=== PATIENT | male | born 1985 | race Caucasian/White ===

== ENCOUNTER 2018-04-19 15:37 | Emergency (ER) | payer MEDICARE, MEDICAID ==
[2018-04-19 15:59] VITALS: BP 137/76
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
== END 2018-04-19 17:14 | disposition home or self-care (01) ==
LOC: UCEAST 15:37
DX: S06.0X9A Concussion with loss of consciousness of unspecified duration, initial encounter (principal); S16.1XXA Strain of muscle, fascia and tendon at neck level, initial encounter; V43.63XA Car passenger injured in collision with pick-up truck in traffic accident, initial encounter; Y93.89 Activity, other specified; Y92.410 Unspecified street and highway as the place of occurrence of the external cause; F20.9 Schizophrenia, unspecified; K29.70 Gastritis, unspecified, without bleeding; K22.70 Barrett's esophagus without dysplasia; Z87.891 Personal history of nicotine dependence
CPT/HCPCS: 99212; G0463

== ENCOUNTER 2019-03-24 18:40 | Emergency (ER) | payer MEDICAID, MEDICARE ==
[2019-03-24] MEDS ORDERED: Meclizine TAB* 12.5 MG PO ONE (19:01)
[2019-03-24] MEDS ORDERED: Ondansetron INJ* 2 MG/ML VIAL IV ONE (19:01)
[2019-03-24] MEDS ORDERED: NS 0.9% 1000 ML** 1,000 ML IV ONE (19:01)
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
[2019-03-24 19:22] LABS: ABS Monocytes 0.8 10^3/ul (0-0.8); ABS Neutrophils 2.9 10^3/ul (1.5-7.7); Eosinophil % 0.4 %; Hematocrit 41 % (42-52); Hemoglobin 14.3 g/dL (14.0-18.0); Lymphocyte % 43.6 %; Mean Corpuscular HGB Conc 35 g/dL (31-36); Mean Corpuscular Hemoglobin 33 pg (27-31); Mean Corpuscular Volume 96 fL (80-94); Mean Platelet Volume 8.1 fL (7.4-10.4); Nucleated Red Blood Cells % 0.2; Platelet Count 214 10^3/uL (150-450); Red Blood Count 4.32 10^6 /uL (4.18-5.48); Red Cell Distribution Width 13 % (10.5-15); White Blood Count 6.8 10^3/uL (3.5-10.8)
[2019-03-24 19:40] LABS: ALT 16 U/L (7-52); AST 10 U/L (13-39); Albumin 4.4 g/dL (3.2-5.2); Albumin/Globulin Ratio 1.9 (1-3); Alkaline Phosphatase 50 U/L (34-104); Anion Gap 8 mmol/L (2-11); BUN/Creatinine Ratio 14.3 (8-20); Blood Urea Nitrogen 13 mg/dL (6-24); C Reactive Protein < 1.00 mg/L (<8.01); CO2 Carbon Dioxide 30 mmol/L (22-32); Calcium 9.7 mg/dL (8.6-10.3); Chloride 102 mmol/L (101-111); EGFR African American 116.8 (>60); EGFR Non-African American 96.6 (>60); Globulin 2.3 g/dL (2-4); Glucose 106 mg/dL (70-100); Potassium 4.2 mmol/L (3.5-5.0); Sodium 140 mmol/L (135-145); Total Protein 6.7 g/dL (6.4-8.9)
[2019-03-24 19:41] LABS: Troponin I 0.01 ng/mL (<0.04)
[2019-03-24 19:55] LABS: TSH (Thyroid Stimulating Horm) 5.22 mcIU/mL (0.34-5.60)
[2019-03-24 20:05] LABS: Urine Appearance Clear; Urine Bilirubin Negative (Negative); Urine Blood Negative (Negative); Urine Color Colorless; Urine Glucose Negative (Negative); Urine Ketones Negative (Negative); Urine Nitrite Negative (Negative); Urine Protein Negative (Negative); Urine Specific Gravity 1.003 (1.010-1.030); Urine Urobilinogen Negative (Negative)
[2019-03-24 22:14] VITALS: BP 117/61
== END 2019-03-24 22:10 | disposition home or self-care (01) ==
LOC: ED 18:40
DX: R42 Dizziness and giddiness (principal); R53.1 Weakness; R10.9 Unspecified abdominal pain; R41.9 Unspecified symptoms and signs involving cognitive functions and awareness; F32.9 Major depressive disorder, single episode, unspecified; F20.9 Schizophrenia, unspecified; Z79.51 Long term (current) use of inhaled steroids; Z91.5 Personal history of self-harm; Z87.891 Personal history of nicotine dependence
CPT/HCPCS: 36415; 76705; 80053; 81003; 83605; 83735; 84443; 84484; 85025; 86140; 93005; 96361; 96374; 99284; A9270-GY; J2405

== ENCOUNTER 2019-04-09 15:02 | Inpatient (IN) | payer MEDICARE ==
[2019-04-09 15:39] LABS: ABS Eosinophils 0.1 10^3/ul (0-0.6); ABS Lymphocytes 2.8 10^3/ul (1.0-4.8); ABS Monocytes 0.8 10^3/ul (0-0.8); ABS Neutrophils 3.2 10^3/ul (1.5-7.7); Eosinophil % 0.9 %; Hematocrit 42 % (42-52); Hemoglobin 14.6 g/dL (14.0-18.0); Lymphocyte % 40.8 %; Mean Corpuscular HGB Conc 35 g/dL (31-36); Mean Corpuscular Hemoglobin 33 pg (27-31); Mean Corpuscular Volume 97 fL (80-94); Mean Platelet Volume 8.2 fL (7.4-10.4); Nucleated Red Blood Cells % 0.1; Platelet Count 241 10^3/uL (150-450); Red Blood Count 4.38 10^6 /uL (4.18-5.48); Red Cell Distribution Width 14 % (10.5-15); White Blood Count 6.8 10^3/uL (3.5-10.8)
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
[2019-04-09 15:56] LABS: ALT 13 U/L (7-52); Albumin 4.3 g/dL (3.2-5.2); Albumin/Globulin Ratio 1.7 (1-3); Alkaline Phosphatase 48 U/L (34-104); BUN/Creatinine Ratio 11.5 (8-20); Blood Urea Nitrogen 10 mg/dL (6-24); CO2 Carbon Dioxide 29 mmol/L (22-32); Calcium 9.6 mg/dL (8.6-10.3); Chloride 103 mmol/L (101-111); EGFR Non-African American 101.7 (>60); Globulin 2.6 g/dL (2-4); Glucose 107 mg/dL (70-100); Sodium 139 mmol/L (135-145); Total Protein 6.9 g/dL (6.4-8.9)
[2019-04-09 16:18] LABS: Acetaminophen < 15 mcg/mL; Alcohol < 10 mg/dL (<10); Salicylate < 2.50 mg/dL (<30)
[2019-04-09 16:19] LABS: Anion Gap 7 mmol/L (2-11)
[2019-04-09 16:24] LABS: Urine Appearance Clear; Urine Bacteria Absent (Absent); Urine Bilirubin Negative (Negative); Urine Blood 1+ (Negative); Urine Color Colorless; Urine Glucose Negative (Negative); Urine Ketones Negative (Negative); Urine Nitrite Negative (Negative); Urine Protein Negative (Negative); Urine Red Blood Cell Trace(0-2/hpf) (Absent); Urine Specific Gravity 1.002 (1.010-1.030); Urine Urobilinogen Negative (Negative); Urine White Blood Cell Trace(0-5/hpf) (Absent)
[2019-04-09 16:33] LABS: TSH (Thyroid Stimulating Horm) 4.12 mcIU/mL (0.34-5.60)
[2019-04-09 16:57] LABS: Urine Benzodiazepine Screen None Detected (None Detect); Urine Opiates Screen None Detected (None Detect)
[2019-04-09] MEDS ORDERED: Al Hydrox/Mg Hydrox/Simet LIQ* 30 ML UDC PO PRN (18:34)
[2019-04-09] MEDS: AMOXICILLIN 875 MG PO SCH (21:28)
[2019-04-09] MEDS ORDERED: Meclizine TAB* 12.5 MG PO PRN (21:46)
[2019-04-09] MEDS ORDERED: Albuterol HFA INHALER* 8 gm MDI INH PRN (21:52)
[2019-04-09] MEDS: Mometasone 220 MCG MDI INH SCH (22:31)
[2019-04-10] MEDS: Fluticasone NASAL SPRAY 50MCG* 16 gm SPRAY BTL BOTH NARES SCH (09:16)
[2019-04-10] MEDS: AMOXICILLIN 875 MG PO SCH ×2 (09:20→20:31)
[2019-04-10] MEDS: Famotidine TAB* 20 MG PO SCH ×3 (09:45→20:32)
[2019-04-10] MEDS: Vitamin THERAPEUTIC TAB PO SCH (10:57)
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
[2019-04-10] MEDS: Mometasone 220 MCG MDI INH SCH (18:42)
[2019-04-10] MEDS: Divalproex DR TAB(*) 500 MG PO SCH (20:32)
[2019-04-11] MEDS: Vitamin THERAPEUTIC TAB PO SCH (09:55)
[2019-04-11] MEDS: Famotidine TAB* 20 MG PO SCH ×2 (09:55→21:31)
[2019-04-11] MEDS: AMOXICILLIN 875 MG PO SCH ×2 (09:55→21:30)
[2019-04-11] MEDS: Fluticasone NASAL SPRAY 50MCG* 16 gm SPRAY BTL BOTH NARES SCH (09:56)
--- NOTE | 2019-04-11 11:46 | PN ---
Subjective - Subjective Date of Service: 04/11/19 Service Type: 36592 Hosp care 15 min low complexity Subjective: Leonardo is seen for Holiday coverage here on the BSU. He appears somewhat anxious and aloof in his room but has no acute complaints related to safety, denying SI or thoughts of self-harm. He is mostly concerned about medical/ physical issues, reporting that the switch from Zantac to Pepcid has resulted in much better control of his reflux issues. He does complain that the pharmacy automatic substitution of Plan - Treatment Plan Medications: Current Medications Acetaminophen (Tylenol Tab*) 650 mg PO Q4H PRN PRN Reason: PAIN or TEMP > 101 F Al Hydrox/Mg Hydrox/Simethicone (Maalox Plus*) 30 ml PO Q4H PRN PRN Reason: INDIGESTION Albuterol (Ventolin Hfa Inhaler*) 2 puff INH Q4H PRN PRN Reason: SHORTNESS OF BREATH Amoxicillin (Amoxicillin Po (*)) 875 mg PO BID [facility] Stop: 04/14/19 09:01 Last Admin: 04/11/19 09:55 Dose: 875 mg Divalproex Sodium (Depakote Dr Tab(*)) 1,500 mg PO BEDTIME [facility] Last Admin: 04/10/19 20:32 Dose: 1,500 mg Famotidine (Pepcid Tab*) 20 mg PO BID [facility] Last Admin: 04/11/19 09:55 Dose: 20 mg Fluticasone Propionate (Flonase Nasal [place] 50mcg*) 2 spray BOTH NARES DAILY [facility] Last Admin: 04/11/19 09:56 Dose: 2 spray Meclizine HCl (Antivert Tab*) 25 mg PO TID PRN PRN Reason: DIZZINESS Mometasone Furoate (Asmanex 220 Mcg Mdi *) 1 puff INH QPM [facility] Last Admin: 04/10/19 18:42 Dose: 1 puff Multivitamins (Theragran Tab*) 1 tab PO DAILY [facility] Last Admin: 04/11/19 09:55 Dose: 1 tab Risperidone (Risperdal Consta*) 50 mg IM .[id number] [facility]
--- NOTE | 2019-04-11 11:54 | PN ---
Subjective - Subjective Date of Service: 04/11/19 Service Type: [id number] Hosp care 15 min low complexity Subjective: Leonardo is seen for Holiday coverage here on the BSU. He appears somewhat anxious and aloof in his room but has no acute complaints related to safety, denying SI or thoughts of self-harm. He is mostly concerned about medical/ physical issues, reporting that the switch from Zantac to Pepcid has resulted in much better control of his reflux issues. He does complain that the automatic pharmacy substitution of Asmanex for the Flovent is problematic, as he doesn't quite understand how to use the new inhaler device. Objective - General Observations Appearance: Well Groomed Stature: WNL Posture: WNL Eye Contact: Average - Interaction Observations Attitude Towards Examiner: Cooperative, Anxious Stated Mood: Dysphoric, Anxious Affect: Flat Speech Pattern/Tone: Clear, Appropriate, Normal Volume Thought Process: Coherent Perception: WNL Thought Content: Paranoid Thought Process: Lethality: Paranoid Ideation Hallucination Type: None Delusion Type: None - Cognitive Function Orientation: A&O x 4 Level of Consciousness: Awake Cognition: WNL Estimated Intelligence: Normal Insight: WNL Judgment Within Normal Limits: Yes Ability to Make Reasonable Decisions: Mildly Impaired - Medication Compliance Cooperative with Inpatient Medication Regimen: Yes - Group Participation Participates in Group Activities: No Assessment - Assessment Merits Inpatient Hospitalization: For Immediate Safety, For Stabilization Inpatient DSM-V Dx: F25.0 Clinical Impression: 34 y.o. single, white male with a history of schizophrenia arrives on a voluntary basis, having been brought in by his mother, due to increasing anxiety and psychotic symptoms. BSU: Problem List - Patient Problems (1) Schizoaffective disorder Current Visit: No Status: Chronic Priority: High Onset Date: 03/08/16 Code(s): F25.9 - SCHIZOAFFECTIVE DISORDER, UNSPECIFIED SNOMED Code(s): 37101602 Comment: current episode (04/08/2016) with psychosis Plan - Plan Treatment Plan: Name: LEONARDO MCARTHUR Birthdate: 1985 [id number] Continue risperidone Consta 50mg IM q2wks (last 04/05/19) and Depakote ER 1500mg PO qhs. Continue inpatient treatment. Continued Medication Management: Continue Outpt Medication Medications: Current Medications Acetaminophen (Tylenol Tab*) 650 mg PO Q4H PRN PRN Reason: PAIN or TEMP > 101 F Al Hydrox/Mg Hydrox/Simethicone (Maalox Plus*) 30 ml PO Q4H PRN PRN Reason: INDIGESTION Albuterol (Ventolin Hfa Inhaler*) 2 puff INH Q4H PRN PRN Reason: SHORTNESS OF BREATH Amoxicillin (Amoxicillin Po (*)) 875 mg PO BID [facility] Stop: 04/14/19 09:01 Last Admin: 04/11/19 09:55 Dose: 875 mg Divalproex Sodium (Depakote Dr Tab(*)) 1,500 mg PO BEDTIME [facility] Last Admin: 04/10/19 20:32 Dose: 1,500 mg Famotidine (Pepcid Tab*) 20 mg PO BID [facility] Last Admin: 04/11/19 09:55 Dose: 20 mg Fluticasone Propionate (Flonase Nasal [place] 50mcg*) 2 spray BOTH NARES DAILY [facility] Last Admin: 04/11/19 09:56 Dose: 2 spray Meclizine HCl (Antivert Tab*) 25 mg PO TID PRN PRN Reason: DIZZINESS Mometasone Furoate (Asmanex 220 Mcg Mdi *) 1 puff INH QPM [facility] Last Admin: 04/10/19 18:42 Dose: 1 puff Multivitamins (Theragran Tab*) 1 tab PO DAILY [facility] Last Admin: 04/11/19 09:55 Dose: 1 tab Risperidone (Risperdal Consta*) 50 mg IM .[id number] [facility] - Discharge Plan Discharge Plan: Inpatient Hospitalization Lab Results - Lab Results Lab Results: 04/09/19 04/09/19 04/09/19 15:32 15:32 16:17 WBC 6.8 RBC 4.38 Hgb 14.6 Hct 42 MCV 97 H MCH 33 H MCHC 35 RDW 14 Plt Count 241 MPV 8.2 Neut % (Auto) 46.7 Lymph % (Auto) 40.8 [place] % (Auto) 11.3 Eos % (Auto) 0.9 Baso % (Auto) 0.3 Absolute Neuts (auto) 3.2 Absolute Lymphs (auto) 2.8 Absolute Monos (auto) 0.8 Absolute Eos (auto) 0.1 Absolute Basos (auto) 0.0 Absolute Nucleated RBC 0.0 Nucleated RBC % 0.1 Sodium 139 Potassium TNP Chloride 103 Carbon Dioxide 29 Anion Gap 7 BUN 10 Creatinine 0.87 Est GFR ( Amer) 123.0 Est GFR (Non-Af Amer) 101.7 BUN/Creatinine Ratio 11.5 Glucose 107 H Calcium 9.6 Total Bilirubin 0.40 AST TNP ALT 13 Alkaline Phosphatase 48 Total Protein 6.9 Albumin 4.3 Globulin 2.6 Albumin/Globulin Ratio 1.7 TSH 4.12 Urine Color Colorless Urine Appearance Clear Urine pH 7.0 Ur Specific [place] 1.002 L Urine Protein Negative Urine Ketones Negative Urine Blood 1+ A Urine Nitrate Negative Urine Bilirubin Negative Urine Urobilinogen Negative Ur Leukocyte Esterase Negative Urine WBC (Auto) Trace(0-5/hpf) Urine RBC (Auto) Trace(0-2/hpf) Urine Bacteria Absent Urine Glucose Negative Salicylates < 2.50 Urine Opiates Screen Acetaminophen < 15 Ur Barbiturates Screen Valproic Acid 117.0 H Ur Phencyclidine Scrn Ur Amphetamines Screen U Benzodiazepines Scrn Urine Cocaine Screen U Cannabinoids Screen Serum Alcohol < 10 04/09/19 04/09/19 04/09/19 16:17 16:47 19:04 WBC RBC Hgb Hct MCV MCH MCHC RDW Plt Count MPV Neut % (Auto) Lymph % (Auto) [place] % (Auto) Eos % (Auto) Baso % (Auto) Absolute Neuts (auto) Absolute Lymphs (auto) Absolute Monos (auto) Absolute Eos (auto) Absolute Basos (auto) Absolute Nucleated RBC Nucleated RBC % Sodium Potassium TNP 4.0 Chloride Carbon Dioxide Anion Gap BUN Creatinine Est GFR ( Amer) Est GFR (Non-Af Amer) BUN/Creatinine Ratio Glucose Calcium Total Bilirubin AST TNP 9 L ALT Alkaline Phosphatase Total Protein Albumin Globulin Albumin/Globulin Ratio TSH Urine Color Urine Appearance Urine pH Ur Specific [place] Urine Protein Urine Ketones Urine Blood Urine Nitrate Urine Bilirubin Urine Urobilinogen Ur Leukocyte Esterase Urine WBC (Auto) Urine RBC (Auto) Urine Bacteria Urine Glucose Salicylates Urine Opiates Screen None detected Acetaminophen Ur Barbiturates Screen None detected Valproic Acid Ur Phencyclidine Scrn None detected Ur Amphetamines Screen None detected U Benzodiazepines Scrn None detected Urine Cocaine Screen None detected U Cannabinoids Screen None detected Serum Alcohol 04/10/19 07:25 WBC RBC Hgb Hct MCV MCH MCHC RDW Plt Count MPV Neut % (Auto) Lymph % (Auto) [place] % (Auto) Eos % (Auto) Baso % (Auto) Absolute Neuts (auto) Absolute Lymphs (auto) Absolute Monos (auto) Absolute Eos (auto) Absolute Basos (auto) Absolute Nucleated RBC Nucleated RBC % Sodium Potassium Chloride Carbon Dioxide Anion Gap BUN Creatinine Est GFR ( Amer) Est GFR (Non-Af Amer) BUN/Creatinine Ratio Glucose Calcium Total Bilirubin AST ALT Alkaline Phosphatase Total Protein Albumin Globulin Albumin/Globulin Ratio TSH Urine Color Urine Appearance Urine pH Ur Specific [place] Urine Protein Urine Ketones Urine Blood Urine Nitrate Urine Bilirubin Urine Urobilinogen Ur Leukocyte Esterase Urine WBC (Auto) Urine RBC (Auto) Urine Bacteria Urine Glucose Salicylates Urine Opiates Screen Acetaminophen Ur Barbiturates Screen Valproic Acid 49.0 L Ur Phencyclidine Scrn Ur Amphetamines Screen U Benzodiazepines Scrn Urine Cocaine Screen U Cannabinoids Screen Serum Alcohol
[2019-04-11] MEDS: Mometasone 220 MCG MDI INH SCH (17:31)
[2019-04-11] MEDS: Divalproex DR TAB(*) 500 MG PO SCH (21:31)
[2019-04-11] MEDS: Acetaminophen TAB* 325 MG PO PRN (21:33)
[2019-04-12] MEDS: Vitamin THERAPEUTIC TAB PO SCH (08:58)
[2019-04-12] MEDS: Famotidine TAB* 20 MG PO SCH ×2 (08:58→19:53)
[2019-04-12] MEDS: Fluticasone NASAL SPRAY 50MCG* 16 gm SPRAY BTL BOTH NARES SCH (08:58)
[2019-04-12] MEDS: AMOXICILLIN 875 MG PO SCH ×2 (08:59→19:54)
--- NOTE | 2019-04-12 10:36 | PN ---
Subjective - Subjective Date of Service: 04/12/19 Service Type: 97338 Hosp care 35 min high complexity Subjective: Nursing Report: Patient was visible on unit, Slept overnight without incident. He is attending group activities. CC: "Fine" Patient was seen and evaluated in the common room. He reported having adequate appetite and sleep. The patient reports attending and participating in day groups. Per nursing no behavioral issues or overnight events reported. Patient reported that he is tolerating medications without side effects. He reported hearing voices. He reported that his uncle last week and he has been sad. Objective - General Observations Appearance: Neat Appears Stated Age: Yes Stature: WNL Posture: WNL Eye Contact: Average Behavior/Activity: WNL - Interaction Observations Attitude Towards Examiner: Mistrustful Stated Mood: Dysphoric Affect: Blunted Speech Pattern/Tone: Clear Thought Process: Impoverished Perception: WNL Thought Content: Depressive Thought Process: Lethality: Passive Wish Hallucination Type: Auditory Delusion Type: None - Cognitive Function Orientation: A&O x 4 Level of Consciousness: Awake - Medication Compliance Cooperative with Inpatient Medication Regimen: Yes - Group Participation Participates in Group Activities: Yes Assessment - Assessment Merits Inpatient Hospitalization: For Immediate Safety Inpatient DSM-V Dx: F25.0 Clinical Impression: 34 y.o. single, white male with a history of schizophrenia arrives on a voluntary basis, having been brought in by his mother, due to increasing anxiety and psychotic symptoms. Plan - Plan Treatment Plan: Name: COLBY MCARTHUR Birthdate: 1985 [id number] # Q15 minute observation. # The patient requires inpatient admission at this time to assure safety, receive treatment and work toward stabilization. # Risperdal consta 50mg IM given on 04/05/19 next due is on 04/19/19 # Obtain collateral information once release is signed. # Collaboration with Social Work to assist with disposition and after care. # VA level 49 on 04/09/19 #lLexapro 10mg daily #Continue [id number] qhs #Goals before discharge include: Decrease paranoia and auditory hallucinations The risks, benefits, and alternative treatment options were discussed as well as of the risks of refusing treatment. After this discussion and an acknowledgement of this understanding was made. A risk/ benefit assessment of treatment was considered and discussed with the patient. When comparing the risks of treatment with the dangers of not receiving treatment, the benefits of treatment outweigh the treatment risks at this time. Risks of suicidal ideation , behavioral changes, dystonia, movement disorders, cardiac conduction changes , serotonin syndrome, metabolic risks and NMS were among some of the risks discussed. 04/09/19 04/09/19 04/09/19 15:32 15:32 16:17 WBC 6.8 RBC 4.38 Hgb 14.6 Hct 42 MCV 97 H MCH 33 H MCHC 35 RDW 14 Plt Count 241 MPV 8.2 Neut % (Auto) 46.7 Lymph % (Auto) 40.8 [place] % (Auto) 11.3 Eos % (Auto) 0.9 Baso % (Auto) 0.3 Absolute Neuts (auto) 3.2 Absolute Lymphs (auto) 2.8 Absolute Monos (auto) 0.8 Absolute Eos (auto) 0.1 Absolute Basos (auto) 0.0 Absolute Nucleated RBC 0.0 Nucleated RBC % 0.1 Sodium 139 Potassium TNP Chloride 103 Carbon Dioxide 29 Anion Gap 7 BUN 10 Creatinine 0.87 Est GFR ( Amer) 123.0 Est GFR (Non-Af Amer) 101.7 BUN/Creatinine Ratio 11.5 Glucose 107 H Calcium 9.6 Total Bilirubin 0.40 AST TNP ALT 13 Alkaline Phosphatase 48 Total Protein 6.9 Albumin 4.3 Globulin 2.6 Albumin/Globulin Ratio 1.7 TSH 4.12 Urine Color Colorless Urine Appearance Clear Urine pH 7.0 Ur Specific [place] 1.002 L Urine Protein Negative Urine Ketones Negative Urine Blood 1+ A Urine Nitrate Negative Urine Bilirubin Negative Urine Urobilinogen Negative Ur Leukocyte Esterase Negative Urine WBC (Auto) Trace(0-5/hpf) Urine RBC (Auto) Trace(0-2/hpf) Urine Bacteria Absent Urine Glucose Negative Salicylates < 2.50 Urine Opiates Screen Acetaminophen < 15 Ur Barbiturates Screen Valproic Acid 117.0 H Ur Phencyclidine Scrn Ur Amphetamines Screen U Benzodiazepines Scrn Urine Cocaine Screen U Cannabinoids Screen Serum Alcohol < 10 04/09/19 04/09/19 04/09/19 16:17 16:47 19:04 WBC RBC Hgb Hct MCV MCH MCHC RDW Plt Count MPV Neut % (Auto) Lymph % (Auto) [place] % (Auto) Eos % (Auto) Baso % (Auto) Absolute Neuts (auto) Absolute Lymphs (auto) Absolute Monos (auto) Absolute Eos (auto) Absolute Basos (auto) Absolute Nucleated RBC Nucleated RBC % Sodium Potassium TNP 4.0 Chloride Carbon Dioxide Anion Gap BUN Creatinine Est GFR ( Amer) Est GFR (Non-Af Amer) BUN/Creatinine Ratio Glucose Calcium Total Bilirubin AST TNP 9 L ALT Alkaline Phosphatase Total Protein Albumin Globulin Albumin/Globulin Ratio TSH Urine Color Urine Appearance Urine pH Ur Specific [place] Urine Protein Urine Ketones Urine Blood Urine Nitrate Urine Bilirubin Urine Urobilinogen Ur Leukocyte Esterase Urine WBC (Auto) Urine RBC (Auto) Urine Bacteria Urine Glucose Salicylates Urine Opiates Screen None detected Acetaminophen Ur Barbiturates Screen None detected Valproic Acid Ur Phencyclidine Scrn None detected Ur Amphetamines Screen None detected U Benzodiazepines Scrn None detected Urine Cocaine Screen None detected U Cannabinoids Screen None detected Serum Alcohol 04/10/19 07:25 WBC RBC Hgb Hct MCV MCH MCHC RDW Plt Count MPV Neut % (Auto) Lymph % (Auto) [place] % (Auto) Eos % (Auto) Baso % (Auto) Absolute Neuts (auto) Absolute Lymphs (auto) Absolute Monos (auto) Absolute Eos (auto) Absolute Basos (auto) Absolute Nucleated RBC Nucleated RBC % Sodium Potassium Chloride Carbon Dioxide Anion Gap BUN Creatinine Est GFR ( Amer) Est GFR (Non-Af Amer) BUN/Creatinine Ratio Glucose Calcium Total Bilirubin AST ALT Alkaline Phosphatase Total Protein Albumin Globulin Albumin/Globulin Ratio TSH Urine Color Urine Appearance Urine pH Ur Specific [place] Urine Protein Urine Ketones Urine Blood Urine Nitrate Urine Bilirubin Urine Urobilinogen Ur Leukocyte Esterase Urine WBC (Auto) Urine RBC (Auto) Urine Bacteria Urine Glucose Salicylates Urine Opiates Screen Acetaminophen Ur Barbiturates Screen Valproic Acid 49.0 L Ur Phencyclidine Scrn Ur Amphetamines Screen U Benzodiazepines Scrn Urine Cocaine Screen U Cannabinoids Screen Serum Alcohol Continued Medication Management: Start Medication Medications: Current Medications Acetaminophen (Tylenol Tab*) 650 mg PO Q4H PRN PRN Reason: PAIN or TEMP > 101 F Last Admin: 04/11/19 21:33 Dose: 650 mg Al Hydrox/Mg Hydrox/Simethicone (Maalox Plus*) 30 ml PO Q4H PRN PRN Reason: INDIGESTION Albuterol (Ventolin Hfa Inhaler*) 2 puff INH Q4H PRN PRN Reason: SHORTNESS OF BREATH Amoxicillin (Amoxicillin Po (*)) 875 mg PO BID [facility] Stop: 04/14/19 09:01 Last Admin: 04/12/19 08:59 Dose: 875 mg Divalproex Sodium (Depakote Dr Tab(*)) 1,500 mg PO BEDTIME [facility] Last Admin: 04/11/19 21:31 Dose: 1,500 mg Famotidine (Pepcid Tab*) 20 mg PO BID [facility] Last Admin: 04/12/19 08:58 Dose: 20 mg Fluticasone Propionate (Flonase Nasal [place] 50mcg*) 2 spray BOTH NARES DAILY [facility] Last Admin: 04/12/19 08:58 Dose: 2 spray Meclizine HCl (Antivert Tab*) 25 mg PO TID PRN PRN Reason: DIZZINESS Mometasone Furoate (Asmanex 220 Mcg Mdi *) 1 puff INH QPM [facility] Last Admin: 04/11/19 17:31 Dose: 1 puff Multivitamins (Theragran Tab*) 1 tab PO DAILY [facility] Last Admin: 04/12/19 08:58 Dose: 1 tab Risperidone (Risperdal Consta*) 50 mg IM .[id number] [facility] - Discharge Plan Discharge Plan: Inpatient Hospitalization
[2019-04-12] MEDS: Escitalopram * 10 MG TAB PO SCH (13:02)
[2019-04-12] MEDS: Mometasone 220 MCG MDI INH SCH (18:41)
[2019-04-12] MEDS: Divalproex DR TAB(*) 500 MG PO SCH (19:53)
[2019-04-13] MEDS: Vitamin THERAPEUTIC TAB PO SCH (09:06)
[2019-04-13] MEDS: Famotidine TAB* 20 MG PO SCH ×2 (09:06→21:57)
[2019-04-13] MEDS: Escitalopram * 10 MG TAB PO SCH (09:06)
[2019-04-13] MEDS: Fluticasone NASAL SPRAY 50MCG* 16 gm SPRAY BTL BOTH NARES SCH (09:06)
[2019-04-13] MEDS: AMOXICILLIN 875 MG PO SCH ×2 (09:07→21:56)
--- NOTE | 2019-04-13 11:12 | PN ---
Subjective - Subjective Date of Service: 04/13/19 Service Type: 58604 Hosp care 35 min high complexity Subjective: Nursing Report: Compliant with medications, Slept overnight without incident. Today he is attending group activities. CC: " okay Patient was seen and evaluated in the common room. He reported that his mood is better today and he has more energy. He feels less paranoid. He spoke to his mother who he said has mental health issues as well but noted that the conversation went well. Yesterday he noted feeling tired and did not attend the groups. He feels safe on the unit He reported having adequate appetite and sleep. Per nursing no behavioral issues or overnight events reported. Patient reported that he is tolerating medications without side effects. Objective - General Observations Appears Stated Age: Yes Stature: WNL Posture: WNL Eye Contact: Average Behavior/Activity: WNL - Interaction Observations Attitude Towards Examiner: Cooperative Stated Mood: Dysphoric Affect: Flat Speech Pattern/Tone: Quiet Volume Thought Process: Impoverished Perception: WNL Thought Content: WNL, Paranoid Thought Process: Lethality: Passive Wish Hallucination Type: Auditory Delusion Type: None - Cognitive Function Orientation: A&O x 4 Level of Consciousness: Awake - Medication Compliance Cooperative with Inpatient Medication Regimen: Yes - Group Participation Participates in Group Activities: Partial Assessment - Assessment Merits Inpatient Hospitalization: For Immediate Safety Inpatient DSM-V Dx: F25.0 Clinical Impression: 34 y.o. single, white male with a history of schizophrenia arrives on a voluntary basis, having been brought in by his mother, due to increasing anxiety and psychotic symptoms. Plan - Plan Treatment Plan: Name: COLBY MCARTHUR Birthdate: 1985 [id number] # Q15 minute observation. # The patient requires inpatient admission at this time to assure safety, receive treatment and work toward stabilization. # Risperdal consta 50mg IM given on 04/05/19 next due is on 04/19/19 # Obtain collateral information once release is signed. # Collaboration with Social Work to assist with disposition and after care. # VA level 49 on 04/09/19 # Increase Lexapro 20mg daily #Continue [id number] qhs #Goals before discharge include: Decrease paranoia and auditory hallucinations Plans to follow up at [facility] and the [facility] upon discharge The risks, benefits, and alternative treatment options were discussed as well as of the risks of refusing treatment. After this discussion and an acknowledgement of this understanding was made. A risk/ benefit assessment of treatment was considered and discussed with the patient. When comparing the risks of treatment with the dangers of not receiving treatment, the benefits of treatment outweigh the treatment risks at this time. Risks of suicidal ideation , behavioral changes, dystonia, movement disorders, cardiac conduction changes , serotonin syndrome, metabolic risks and NMS were among some of the risks discussed. Sodium 139 mmol/L (135-145) 04/09/19 15:32 Potassium 4.0 mmol/L (3.5-5.0) 04/09/19 19:04 BUN 10 mg/dL (6-24) 04/09/19 15:32 Creatinine 0.87 mg/dL (0.67-1.17) 04/09/19 15:32 Calcium 9.6 mg/dL (8.6-10.3) 04/09/19 15:32 AST 9 U/L (13-39) L 04/09/19 19:04 ALT 13 U/L (7-52) 04/09/19 15:32 Vital Signs Temp Pulse Resp BP Pulse Ox 97.4 F 93 16 114/67 98 04/13/19 08:24 04/13/19 08:24 04/13/19 10:56 04/13/19 08:24 04/13/19 08:24 Continued Medication Management: Continue Outpt Medication Medications: Current Medications Acetaminophen (Tylenol Tab*) 650 mg PO Q4H PRN PRN Reason: PAIN or TEMP > 101 F Last Admin: 04/11/19 21:33 Dose: 650 mg Al Hydrox/Mg Hydrox/Simethicone (Maalox Plus*) 30 ml PO Q4H PRN PRN Reason: INDIGESTION Albuterol (Ventolin Hfa Inhaler*) 2 puff INH Q4H PRN PRN Reason: SHORTNESS OF BREATH Amoxicillin (Amoxicillin Po (*)) 875 mg PO BID [facility] Stop: 04/14/19 09:01 Last Admin: 04/13/19 09:07 Dose: 875 mg Divalproex Sodium (Depakote Dr Tab(*)) 1,500 mg PO BEDTIME [facility] Last Admin: 04/12/19 19:53 Dose: 1,500 mg Escitalopram Oxalate (Lexapro *) 20 mg PO DAILY [facility] Famotidine (Pepcid Tab*) 20 mg PO BID [facility] Last Admin: 04/13/19 09:06 Dose: 20 mg Fluticasone Propionate (Flonase Nasal [place] 50mcg*) 2 spray BOTH NARES DAILY [facility] Last Admin: 04/13/19 09:06 Dose: 2 spray Meclizine HCl (Antivert Tab*) 25 mg PO TID PRN PRN Reason: DIZZINESS Mometasone Furoate (Asmanex 220 Mcg Mdi *) 1 puff INH QPM [facility] Last Admin: 04/12/19 18:41 Dose: 1 puff Multivitamins (Theragran Tab*) 1 tab PO DAILY [facility] Last Admin: 04/13/19 09:06 Dose: 1 tab Risperidone (Risperdal Consta*) 50 mg IM .[id number] [facility] - Discharge Plan Discharge Plan: Inpatient Hospitalization
--- NOTE | 2019-04-13 16:21 | PN ---
BSU: Group Therapy Note - Service Type Service Type: [id number] Group Psychotherapy - Medication Education Group: Patient was attentive and participatory in group, and remained in good behavioral control. Patient expressed positive insights regarding relevant treatment interventions. Patient stated understanding of material discussed and had appropriate questions.
[2019-04-13] MEDS: Mometasone 220 MCG MDI INH SCH (17:18)
[2019-04-13] MEDS: Divalproex DR TAB(*) 500 MG PO SCH (21:56)
[2019-04-13] MEDS: Acetaminophen TAB* 325 MG PO PRN (22:00)
[2019-04-14 08:41] VITALS: BP 133/64
[2019-04-14] MEDS: ESCITALOPRAM 20 MG PO SCH (08:58)
[2019-04-14] MEDS: Famotidine TAB* 20 MG PO SCH ×2 (08:58→21:04)
[2019-04-14] MEDS: Vitamin THERAPEUTIC TAB PO SCH (08:58)
[2019-04-14] MEDS: Fluticasone NASAL SPRAY 50MCG* 16 gm SPRAY BTL BOTH NARES SCH (08:59)
[2019-04-14] MEDS: AMOXICILLIN 875 MG PO SCH (08:59)
--- NOTE | 2019-04-14 12:46 | PN ---
Subjective - Subjective Date of Service: 04/14/19 Service Type: 00054 Hosp care 35 min high complexity Subjective: Nursing Report: Patient was visible on unit, no chemical restraints or PRNs. Slept overnight without incident. He is attending group activities. CC: " I am better Patient was seen and evaluated. The patient reported he feels safe on the unit and is interacting with peers. He reported having adequate appetite and sleep. The patient reports attending and participating in day groups. Per nursing no behavioral issues or overnight events reported. Patient reported that he is tolerating medications without side effects. He feels safe with going home to live with his mother. He reports that his mood has improved. Objective - General Observations Appearance: Neat Appears Stated Age: Yes Stature: WNL Posture: WNL Eye Contact: Average - Interaction Observations Attitude Towards Examiner: Cooperative Stated Mood: Anxious Affect: Blunted Speech Pattern/Tone: Clear Thought Process: Coherent Perception: WNL Thought Content: WNL Hallucination Type: Auditory Delusion Type: None - Cognitive Function Orientation: A&O x 4 Level of Consciousness: Awake - Medication Compliance Cooperative with Inpatient Medication Regimen: Yes - Group Participation Participates in Group Activities: Yes Assessment - Assessment Merits Inpatient Hospitalization: For Immediate Safety Inpatient DSM-V Dx: F25.0 Clinical Impression: 34 y.o. single, white male with a history of schizophrenia arrives on a voluntary basis, having been brought in by his mother, due to increasing anxiety and psychotic symptoms. Plan - Plan Treatment Plan: Name: COLBY MCARTHUR Birthdate: 1985 [id number] # Q30 minute observation with staff pass # The patient requires inpatient admission at this time to assure safety, receive treatment and work toward stabilization. # Risperdal consta 50mg IM given on 04/05/19 next due is on 04/19/19 # Will contact mother before discharge # Collaboration with Social Work to assist with disposition and after care. # VA level 49 on 04/09/19 # Lexapro 20mg daily #Continue [id number] qhs #Goals before discharge include: Decrease paranoia and auditory hallucinations Plans to follow up at [facility] and the [facility] upon discharge Tentative Discharge Thursday The risks, benefits, and alternative treatment options were discussed as well as of the risks of refusing treatment. After this discussion and an acknowledgement of this understanding was made. A risk/ benefit assessment of treatment was considered and discussed with the patient. When comparing the risks of treatment with the dangers of not receiving treatment, the benefits of treatment outweigh the treatment risks at this time. Risks of suicidal ideation , behavioral changes, dystonia, movement disorders, cardiac conduction changes , serotonin syndrome, metabolic risks and NMS were among some of the risks discussed. Sodium 139 mmol/L (135-145) 04/09/19 15:32 Potassium 4.0 mmol/L (3.5-5.0) 04/09/19 19:04 BUN 10 mg/dL (6-24) 04/09/19 15:32 Creatinine 0.87 mg/dL (0.67-1.17) 04/09/19 15:32 Calcium 9.6 mg/dL (8.6-10.3) 04/09/19 15:32 AST 9 U/L (13-39) L 04/09/19 19:04 ALT 13 U/L (7-52) 04/09/19 15:32 Vital Signs Temp Pulse Resp BP Pulse Ox 97.8 F 69 14 133/64 98 04/14/19 08:11 04/14/19 08:11 04/14/19 08:11 04/14/19 08:11 04/14/19 08:11 Continued Medication Management: Continue Outpt Medication Medications: Current Medications Acetaminophen (Tylenol Tab*) 650 mg PO Q4H PRN PRN Reason: PAIN or TEMP > 101 F Last Admin: 04/13/19 22:00 Dose: 650 mg Al Hydrox/Mg Hydrox/Simethicone (Maalox Plus*) 30 ml PO Q4H PRN PRN Reason: INDIGESTION Albuterol (Ventolin Hfa Inhaler*) 2 puff INH Q4H PRN PRN Reason: SHORTNESS OF BREATH Divalproex Sodium (Depakote Dr Tab(*)) 1,500 mg PO BEDTIME [facility] Last Admin: 04/13/19 21:56 Dose: 1,500 mg Escitalopram Oxalate (Lexapro *) 20 mg PO DAILY [facility] Last Admin: 04/14/19 08:58 Dose: 20 mg Famotidine (Pepcid Tab*) 20 mg PO BID [facility] Last Admin: 04/14/19 08:58 Dose: 20 mg Fluticasone Propionate (Flonase Nasal [place] 50mcg*) 2 spray BOTH NARES DAILY [facility] Last Admin: 04/14/19 08:59 Dose: 2 spray Meclizine HCl (Antivert Tab*) 25 mg PO TID PRN PRN Reason: DIZZINESS Mometasone Furoate (Asmanex 220 Mcg Mdi *) 1 puff INH QPM [facility] Last Admin: 04/13/19 17:18 Dose: 1 puff Multivitamins (Theragran Tab*) 1 tab PO DAILY [facility] Last Admin: 04/14/19 08:58 Dose: 1 tab Risperidone (Risperdal Consta*) 50 mg IM .[id number] [facility] - Discharge Plan Discharge Plan: Inpatient Hospitalization
--- NOTE | 2019-04-14 14:25 | PN ---
BSU: Group Therapy Note - Service Type Service Type: 00016 Group Psychotherapy - Cognitive Behavioral Group Therapy ( CBT):Patient was attentive and participatory in CBT programming this morning, and remained in good behavioral control. Patient expressed positive insights regarding relevant treatment interventions and goals.
[2019-04-14] MEDS: Mometasone 220 MCG MDI INH SCH (19:02)
[2019-04-14] MEDS: Divalproex DR TAB(*) 500 MG PO SCH (21:03)
[2019-04-15] MEDS: ESCITALOPRAM 20 MG PO SCH (09:43)
[2019-04-15] MEDS: Vitamin THERAPEUTIC TAB PO SCH (09:43)
[2019-04-15] MEDS: Famotidine TAB* 20 MG PO SCH (09:43)
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
[2019-04-19] MEDS ORDERED: risperiDONE CONSTA* 50 MG IM SCH (09:00)
== END 2019-04-15 13:45 | disposition home or self-care (01) | DRG 885 ==
LOC: ED 15:02 → BSU 17:20 → ED 17:39
PROVIDERS: ADMIT Psychiatry & Neurology Psychiatry; ATTEND Psychiatry & Neurology Psychiatry
PROC: GZHZZZZ Group Psychotherapy (ICD-10-PCS; principal; 2019-04-09)
DX: F25.9 Schizoaffective disorder, unspecified (principal); K21.9 Gastro-esophageal reflux disease without esophagitis; J45.909 Unspecified asthma, uncomplicated; F41.8 Other specified anxiety disorders; F41.0 Panic disorder [episodic paroxysmal anxiety]; F32.9 Major depressive disorder, single episode, unspecified; Z62.811 Personal history of psychological abuse in childhood; Z81.8 Family history of other mental and behavioral disorders; Z81.1 Family history of alcohol abuse and dependence; Z87.891 Personal history of nicotine dependence; Z83.3 Family history of diabetes mellitus; Z56.0 Unemployment, unspecified; Z91.19 Patient's noncompliance with other medical treatment and regimen
CPT/HCPCS: 36415; 80053; 80164; 80307; 80320; 80329; 81003; 81015; 84443; 85025; 87086; 90853; 99222; 99231; 99232; 99233; 99284; A9270-GY; G0480

== ENCOUNTER 2019-11-27 18:43 | Emergency (ER) | payer MEDICARE, MEDICAID, OTHER ==
--- OUTSIDE RECORDS SUMMARY | 2019-11-27 19:06 | XMS REPORT ---
:1985 Author Organization [facility] Care Team Providers Name Role Phone Nidia Franky Primary Care Physician Unavailable Allergies, Adverse Reactions, Alerts Allergy Code CodeSystem Reaction Severity Criticality Status Start Substance Date Moderate Medications Medication Medication Medication Start Stop Route Dose Status Fill Code CodeSystem Date Date Instructions Risperdal 086972 RxNorm 2019- IM 50 mg/2 active 1 syringe Consta 5-30 10-25 mL 1 every two weeks syringe for 28 day(s) every two weeks DIVALPROEX RxNorm 500mg 4 active Take 4 capsule SODIUM ER 500 6 500mg at at bedtime for MG TB24 bedtime 30 day(s) trihexyphenidy 732898 RxNorm 2019- oral 2 mg 1 active 1 tablet l 06-30 11-13 tablet twice a day twice a for 30 day(s) day trihexyphenidy 868337 RxNorm 2019- oral 2 mg 1 completed 1 tablet l 04-21-05 tablet twice a day twice a for 30 day(s) day sertraline 328088 RxNorm 2018- oral 50 mg 1 completed Take 1 tablet 02-16-02 tablet every morning every for 30 day(s) morning melatonin 360422 RxNorm 2019- oral 3 mg completed for 30 - tablet day(s) Lexapro 486156 RxNorm 2019- oral 10 mg completed for 30 05-12 08-07 tablet day(s) Depakote ER 9155369 RxNorm 2019- oral 500 mg active for 30 04-21 11-05 tablet day(s) extended release 24 hr Invega 656504 RxNorm 2019- IM 156 active Inject 1 Sustenna 8 02-13 mg/mL 1 syringe syringe intramuscularly every every four four weeks for 28 weeks day(s) Lexapro 716510 RxNorm 2019- oral 5 mg active for 30 8-15 11-13 tablet day(s) Lexapro 342353 RxNorm 2019- oral 5 mg 1 completed 1 tablet once 8-07 08-15 tablet a day once a day Problems Problem Name Code CodeSystem Alternate Alternate Start End Status Narrative Code CodeSystem Date Date Schizophreni 37079034 SNOMED-CT Active a, 02-04 unspecified Schizophreni 78600124 SNOMED-CT Active a, 02-04 unspecified Schizophreni 65438941 SNOMED-CT Active a, 02-04 unspecified Schizophreni 29258210 SNOMED-CT Active a, 02-04 unspecified Relevant diagnostic tests/laboratory data Narrative No Information Procedures Procedure Code CodeSystem Target Date of Status Service Device Device Device Name Site Procedure Delivery Code Name UID Location Comprehensiv 492867 SNOMED-CT () 2019-02-22 complete Mental e medication 0 d Health- services, [place] [facility] [place] [address] [place], [place], [id number] Comprehensiv 978164 SNOMED-CT () 2019-03-08 complete Mental e medication 0 d Health- services, [place] per [place] [address], [place], [address] [phone] Comprehensiv 522266 SNOMED-CT () 2019-03-22 complete Mental e medication 0 d Health- services, [place] [address] [place], [place], [id number] Comprehensiv 190263 SNOMED-CT () 2019-04-05 complete Mental e medication 0 d Health- services, [place] [address] [place], [place], [id number] [id number] Comprehensiv 953785 SNOMED-CT () 2019-04-19 complete Mental e medication 0 d Health- services, [place] per [place] [address] [place], [place], [id number] [phone] Comprehensiv 817060 SNOMED-CT () 2019-05-03 complete Mental e medication 0 d Health- services, [place] [address], [place], [id number] [id number] Comprehensiv 380260 SNOMED-CT () 2019-09-27 complete Mental e medication 0 d Health- services, [place] per [place] [address], [place], [id number] [phone] Comprehensiv 907048 SNOMED-CT () 2019-10-11 complete Mental e medication 0 d Health- services, [place] [address], [place], [address] [id number] Comprehensiv 411583 SNOMED-CT () 2019-10-25 complete Mental e medication 0 d Health- services, [place] [address], [place], [id number] [phone] Comprehensiv 731716 SNOMED-CT () 2019-11-08 complete Mental e medication 0 d Health- services, [place] [address] [place], [place], [id number] [id number] Comprehensiv 139369 SNOMED-CT () 2019-05-17 complete Mental e medication 0 d Health- services, [place] [address] [place], [place], [address] [id number] Comprehensiv 166743 SNOMED-CT () 2019-05-31 complete Mental e medication 0 d Health- services, [place] [address], [place], [id number] [phone] Comprehensiv 353161 SNOMED-CT () 2019-06-14 complete Mental e medication 0 d Health- services, [place] per [place] [address] [place], [place], [address] [id number] Comprehensiv 021732 SNOMED-CT () 2019-06-28 complete Mental e medication 0 d Health- services, [place] [address] [place], [place], [address] [id number] Comprehensiv 176483 SNOMED-CT () 2019-08-12 complete Mental e medication 0 d Health- services, [place] [address] [place], [place], [address] [phone] Comprehensiv 620202 SNOMED-CT () 2019-09-13 complete Mental e medication 0 d Health- services, [place] per 15 [facility] minutes [address] [place], [place], [id number] [phone] Office or 543566 SNOMED-CT () 2019-02-16 complete Mental other 7 d Health- outpatient Luna visit for [address], established [id number] patient, [id number] which requires at least 2 of these 3 chavez components: An expanded problem focused history; An expanded problem focused examination; Medical decision making of [facility] Office or 358458 SNOMED-CT () 2019-08-24 complete Mental other 7 d Health- outpatient Darshan visit for [address], established [id number] patient, [id number] which requires at least 2 of these 3 chavez components: An expanded problem focused history; An expanded problem focused examination; Medical decision making of [facility] Office or 379951 SNOMED-CT () 2019-07-14 complete Mental other 6 d Health- outpatient Luna visit for [address], established [id number] patient, [phone] which requires at least 2 of these 3 chavez components: A problem focused history; A problem focused examination; [facility] [facility] medical decision making. Counselin Office or 522922 SNOMED-CT () 2019-09-22 complete Mental other 6 d Health- outpatient Luna visit for [address], established [id number] patient, [id number] which requires at least 2 of these 3 chavez components: A problem focused history; A problem focused examination; [place] medical decision making. Counsel[place] Office or 795913 SNOMED-CT () 2019-04-21 complete Mental other 6 d Health- outpatient Darshan visit for [address], established [id number] patient, [id number] which requires at least 2 of these 3 chavez components: A problem focused history; A problem focused examination; [place] medical decision making. Counselin Office or 838594 SNOMED-CT () 2019-06-22 complete Mental other 6 d Health- outpatient Luna visit for [address], established [id number] patient, [id number] which requires at least 2 of these 3 chavez components: A problem focused history; A problem focused examination; [employer] medical decision making. Counselin Office or 758548 SNOMED-CT () 2019-06-30 complete Mental other 6 d Health- outpatient Luna visit for [address], established [id number] patient, [id number] which requires at least 2 of these 3 chavez components: A problem focused history; A problem focused examination; [employer] medical decision making. Elvis SNOMED-CT () 2019-07-21 complete Mental d [address], [id number] SNOMED-CT () 2019-09-09 complete Mental d [address], [id number] SNOMED-CT () 2019-05-31 complete Mental d Health[address], [id number] SNOMED-CT () 2019-04-19 complete Mental d [address], [id number] SNOMED-CT () 2019-03-10 complete Mental d [address], [id number] SNOMED-CT () 2019-02-22 complete Mental d Health[address], [id number] SNOMED-CT () 2019-03-08 [facility] Mental d [address], [id number] [id number] Encounters/Encounter Diagnoses Encounter Encounter Diagnosis Diagnosis Name Diagnosis Date of Service Name Code Code CodeSystem Diagnosis Delivery Location [id number] Schizophrenia, SNOMED-CT [facility] , , , Vital Signs No Information Social History Element Description Description Start End Code CodeSystem AdditionalInfo Date Date SexAssignedAtBirth Male 1985-0 M AdministrativeGender 3-24 Hospital Discharge Instructions Reason For Referral Medical Equipment FDA Assessments
--- OUTSIDE RECORDS SUMMARY | 2019-11-27 19:06 | XMS REPORT | Continuity of Care Document ---
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 Onset: 10/01/2011 Neck pain Gerald Zayas M.D. Onset: 03/07/2013 Anxiety state Gerald Zayas M.D. Onset: 03/07/2013 Headache Franky Kendall M.D. Onset: 02/29/2016 Social History Type Date Description Comments Sex Unknown ETOH Use Denies alcohol use Recreational Drug Use Formerly used Marijuana sporadically Tobacco Use Start: Unknown End: Patient is a former quit 2018 Unknown smoker Smoking Status Reviewed: 11/10/19 Patient is a former quit 2018 smoker Exercise Type/Frequency Exercises sporadically PT, walking, and pacing due to restlessness. Allergies, Adverse Reactions, Alerts Active Allergies Reaction Severity Comments Date Cats SNEEZING 10/01/2011 Dogs SNEEZING 10/01/2011 Geodon sedated yet wide awake 08/04/2018 Diazepam eyes rolled bakc and 08/04/2018 tongue stuck out MSG Flavor Enhancers bad mood, depression, 08/04/2018 Anger Tomatoes 08/04/2018 Onions 08/04/2018 Garlic 08/04/2018 Spice chili,zafar, cayenne 08/04/2018 Dust Mites 01/20/2019 Inactive Allergies NKDA 04/08/2018 Medications Active Medications SIG Qnty Indications Ordering Date Provider Omeprazole 1 by mouth once 30caps K21.9 Trell Mclaughlin NP 11/10/[address] Gaspar 17 gram with h20 Unknown 3350NF Packet once a day Depakote 3 tabs by mouth at Unknown 500mg Tablets bedtime Albuterol Inhaler as needed Unknown Escitalopram Oxalate 1 by mouth every Unknown day 5mg Tablets Risperdal Consta injection every Unknown 50mg 2wks Srer History Medications Doxycycline 2 capsules once 2caps S40.861A Trell Mclaughlin NP 06/07/2019 - Monohydrate 06/08/2019 100mg Capsules Doxycycline Hyclate 2 tablets by 2tabs S40.861A Trell Mclaughlin NP 06/06/2019 - mouth once 06/07/2019 100mg Tablets Immunizations CPT Code Status Date Vaccine Lot # [id number] Refused 12/16/2012 Fluzone Vaccine [id number] Refused 12/16/2012 Gardasil (HPV) Vital Signs Date Vital Result Comment 11/10/2019 10:35am Height 69 inches 5'9" Weight 188.00 lb Heart Rate 80 /min BP Systolic Sitting 137 mmHg BP Diastolic Sitting 64 mmHg Body Temperature 98.7 F O2 % BldC Oximetry 94 % BMI (Body Mass Index) 27.8 kg/m2 08/10/2019 2:13pm Height 69 inches 5'9" Weight 177.00 lb Heart Rate 80 /min BP Systolic 127 mmHg BP Diastolic 73 mmHg Body Temperature 97.5 F O2 % BldC Oximetry 97 % BMI (Body Mass Index) 26.1 kg/m2 Results Test Acquired Date Facility Test Result H/L Range Note Urinalysis Profile 07/06/2019 [facility] Urine Color Colorless [address] [place] [address] [phone] Urine Appearance Clear Urine Specific [place] 1.003 Low 1.010-1.030 Urine pH 7.0 Normal 5-9 Urine Urobilinogen Negative Negative Urine Ketones Negative Negative Urine Protein Negative Negative Urine Leukocytes Negative Negative Urine Blood Negative Negative Urine Nitrite Negative Negative Urine Bilirubin Negative Negative Urine Glucose Negative Negative CBC Auto 07/06/2019 [facility] White Blood 5.9 10^3/uL Normal 3.5-10.[address] [place] [address] [phone] Red Blood Count 4.37 10^6/uL Normal 4.18-5.48 Hemoglobin 14.5 g/dL Normal 14.0-18.0 Hematocrit 41 % Low 42-52 Mean Corpuscular Volume 95 fL High 80-94 Mean Corpuscular Hemoglobin 33 pg High 27-31 Mean Corpuscular HGB Conc 35 g/dL Normal 31-36 Red Cell Distribution Width 13 % Normal 10-15 Platelet Count 210 10^3/uL Normal 150-450 Mean Platelet Volume 8.3 fL Normal 7.4-10.4 Abs Neutrophils 2.4 10^3/uL Normal 1.5-7.7 Abs Lymphocytes 2.8 10^3/uL Normal 1.0-4.8 Abs Monocytes 0.7 10^3/uL Normal 0-0.8 Abs Eosinophils 0.0 10^3/uL Normal 0-0.6 Abs Basophils 0.0 10^3/uL Normal 0-0.2 Abs Nucleated RBC 0.0 10^3/uL Granulocyte % 40.3 % Lymphocyte % 47.0 % Monocyte % 11.9 % Eosinophil % 0.5 % Basophil % 0.3 % Nucleated Red Blood Cells % 0.1 Urine Drug 07/06/2019 [facility] Urine None Detected None Detect SCR ED & [address] Amp[facility] [place] [address] Screen [phone] Urine Barbiturates Screen None Detected None Detect Urine Benzodiazepine Screen None Detected None Detect Urine Cannabinoids Screen None Detected None Detect Urine Cocaine Screen None Detected None Detect Urine Opiates Screen None Detected None Detect Urine Phencyclidine Screen None Detected None Detect 1 Comp Metabolic 07/06/2019 [facility] Sodium 141 mmol/L Normal 135-[address] [place], [place] [id number] [phone] Chloride 103 mmol/L Normal 101-111 Co2 Carbon Dioxide 32 mmol/L Normal 22-32 Glucose 105 mg/dL High 70-100 Blood Urea Nitrogen 11 mg/dL Normal 6-24 Creatinine 0.98 mg/dL Normal 0.67-1.17 BUN/Creatinine Ratio 11.2 Normal 8-20 Calcium 9.4 mg/dL Normal 8.6-10.3 Total Protein 6.7 g/dL Normal 6.4-8.9 Albumin 4.4 g/dL Normal 3.2-5.2 Globulin 2.3 g/dL Normal 2-4 Albumin/Globulin Ratio 1.9 Normal 1-3 Total Bilirubin 0.40 mg/dL Normal 0.2-1.0 Alkaline Phosphatase 51 U/L Normal 34-104 Alt 13 U/L Normal 7-52 Egfr Non- 88.6 >60 Egfr 107.3 >60 2 Potassium 3.8 mmol/L Normal 3.5-5.0 Anion Gap 6 mmol/L Normal 2-11 Ast 10 U/L Low 13-39 Laboratory test 07/06/2019 [facility] Valproic Acid 86.0 Normal 50-[address] (Depakene) g/[place] [address] [phone] Acetaminophen < 15 g/mL 3 Alcohol < 10 mg/dL Normal <10 Salicylate < 2.50 mg/dL <30 TSH (Thyroid Stim Horm) 3.91 mcIU/mL Normal 0.34-5.60 Laboratory 07/06/2019 [facility] Point of Care 92 mg/dL Normal 70-100 4 test finding [address] [place] [address] [phone] Lyme Disease 05/31/2019 [facility] IgG Immunoblot Negative Negative AB Immunoblot [address] [place] [address] [phone] IgG detected against p66,p41 kDa IgM Immunoblot Negative Negative IgM detected against None kDa Lyme Disease Interpretation See Comment 5 1 The urine specimen was tested at the listed cutoffs: Drug class test level (ng/mL) Amphetamines 500 Barbiturates 200 Benzodiazepine metabolites 200 Cocaine metabolites 150 Cannabinoids 50 Opiates 300 Pcp 25 Specimen was received without chain of custody. Results should be used for medical purposes only. 2 Because ethnic data is not always readily available, this report includes an eGFR for both -Americans and non- Americans. The National Kidney Disease Education Program (NKDEP) does not endorse the use of the MDRD equation for patients that are not between the ages of 18 and 70, are , have extremes of body size, muscle mass, or nutritional status, or are non- or non-. According to the National Kidney Foundation, irrespective of diagnosis, the stage of the disease is based on the level of kidney function: Stage Description GFR(mL/min/1.73 m(2)) 1 Kidney damage with normal or decreased GFR 90 2 Kidney damage with mild decrease in GFR 60-89 3 Moderate decrease in GFR 30-59 4 Severe decrease in GFR 15-29 5 Kidney failure <15 (or dialysis) 3 Therapeutic concentration: <50 ug/mL Toxic concentration: >120 ug/mL 4 Occupational Therapy Assistant: [id number] 5 Specific serologic response to B. burgdorferi infection is not detected, but cannot rule out early infection during which low or undetectable antibody levels to B. burgdorferi may be present. If clinically indicated, a new serum specimen should be submitted in 7-14 days. ADDITIONAL INFORMATION Per CDC criteria, the Lyme IgG Immunoblot is interpreted as positive if IgG-class antibodies are detected to >=5 B. burgdorferi proteins, and the Lyme IgM Immunoblot is interpreted as positive if IgM-class antibodies are detected to >=2 B. burgdorferi proteins. Immunoblot patterns not meeting these criteria should not be interpreted as positive. Epitopes from certain B. burgdorferi proteins (e.g., p41) are conserved across other bacteria, which may lead to the detection of IgM- and/or IgG-class antibodies on the Lyme disease immunoblots in patients without Lyme disease. Immunoblot should only be ordered on specimens that are positive or equivocal by a FDA-licensed Lyme disease antibody screening test (e.g., EIA). Results of the Lyme IgM immunoblot should not be considered in patients with >= 30 days of symptoms. 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 [facility] right upper arm, init encntr Assessments Date Code Description Provider 11/10/2019 K21.9 Gastro-esophageal reflux disease without Trell Mclaughlin NP esophagitis 11/10/2019 B34.9 Viral infection, unspecified Trell Mclaughlin NP 11/10/2019 R10.813 Right lower quadrant abdominal tenderness Trell Mclaughlin NP 11/10/2019 R10.811 Right upper quadrant abdominal tenderness Trell Mclaughlin NP 08/10/2019 Y84.8 Other medical procedures as the cause of abnormal Trell LUNA Mclaughlin reaction of the patient, or of later complication, without mention of misadventure at the time of the procedure 08/10/2019 M25.511 Pain in right shoulder Trell Mclaughlin NP 06/06/2019 S40.861A Insect bite (nonvenomous) of right upper arm, Trell Mclaughlin NP initial encoun Plan of Treatment 11/10/2019 - Trell Mclaughlin NPK21.9 Gastro-esophageal reflux disease without esophagitisNew Medication:Omeprazole 20 mg - 1 by mouth once dailyComments: Lifestyle modification is important in acid reflux. Try to avoid eating within 3 -4 hours of bed, elevate the head of you bed, try to limit caffeine and alcohol , and any foods identified as triggers.Start taking the omeprazole daily for the next few weeks.B34.9 Viral infection, unspecifiedComments:Your symptoms are consistent with a viral infection. Drink plenty of fluids and rest as much as you can.Eat a bland diet for the next few days.R10.813 Right lower quadrant abdominal cpkuvbnptoJ19.811 Right upper quadrant abdominal tenderness Functional Status Description No Information Available Mental Status Description No Information Available Referrals Description No Information Available
[2019-11-27 20:11] LABS: ABS Lymphocytes 2.2 10^3/ul (1.0-4.8); ABS Monocytes 0.7 10^3/ul (0-0.8); ABS Neutrophils 5.6 10^3/ul (1.5-7.7); Eosinophil % 0.1 %; Hematocrit 45 % (42-52); Hemoglobin 15.7 g/dL (14.0-18.0); Mean Corpuscular HGB Conc 35 g/dL (31-36); Mean Corpuscular Hemoglobin 33 pg (27-31); Mean Corpuscular Volume 93 fL (80-94); Nucleated Red Blood Cells % 0.2; Platelet Count 323 10^3/uL (150-450); Red Blood Count 4.82 10^6 /uL (4.18-5.48); Red Cell Distribution Width 13 % (10-15); White Blood Count 8.6 10^3/uL (3.5-10.8)
[2019-11-27 20:27] LABS: ALT 17 U/L (7-52); Albumin 4.8 g/dL (3.2-5.2); Albumin/Globulin Ratio 1.8 (1-3); Alkaline Phosphatase 67 U/L (34-104); BUN/Creatinine Ratio 9.2 (8-20); Blood Urea Nitrogen 8 mg/dL (6-24); CO2 Carbon Dioxide 25 mmol/L (22-32); Chloride 102 mmol/L (101-111); EGFR Non-African American 101.7 (>60); Globulin 2.7 g/dL (2-4); Glucose 127 mg/dL (70-100); Sodium 137 mmol/L (135-145); Total Protein 7.5 g/dL (6.4-8.9)
--- NOTE | 2019-11-27 20:31 | ED ---
Complex/Multi-Sys Presentation - HPI Summary HPI Summary: The patient is a 34 y/o male presenting to [facility] accompanied by mother with a chief complaint of weakness and pain over the last few weeks with worsening in the last few days. He reports difficulty with ambulation secondary to the weakness, but he has not fallen. He also endorses a subjective fever, headache, diffuse abdominal pain, decreased appetite, and diarrhea, although he notes he usually suffers from constipation. He currently rates his symptoms 8/10 in severity. His mother states that he has not been out of bed in the last few days and has been inactive with increased worsening today with trouble walking. PMHx: GERD, anxiety, depression, schizophrenia. Former smoker, no EtOH, no substance use. Medications reviewed. Allergies noted. - History Of Current Complaint Chief Complaint: EDGeneral Time Seen by Provider: 11/27/19 20:25 Hx Obtained From: Patient, Family/Family Consultant - mother Onset/Duration: Lasting Weeks, Still Present, Worse Since - last few days Timing: Constant Severity Currently: Mild Severity Initially: Moderate Aggravating Factor(s): ambulation Associated Signs And Symptoms: Positive: Weakness, Headache, Diarrhea, Abdominal Pain, Decreased Oral Intake, Fever - subjective - Allergies/Home Medications Allergies/Adverse Reactions: Allergies Allergy/AdvReac Type Severity Reaction Status Date / Time diazepam Allergy Altered Verified 07/06/19 18:26 Mental Status ziprasidone [From Neodon] Allergy Insomnia Verified 07/06/19 18:26 PMH/Surg Hx/FS Hx/Imm Hx Endocrine/Hematology History: Denies: Hx Anticoagulant Therapy GI History: Reports: Hx Gastroesophageal Reflux Disease Musculoskeletal History: Denies: Hx Scoliosis Sensory History: Reports: Hx Contacts or Glasses Denies: Hx Hearing Aid Opthamlomology History: Reports: Hx Contacts or Glasses Neurological History: Reports: Hx Headaches Psychiatric History: Reports: Hx Anxiety, Hx Depression, Hx Panic Disorder, Hx Inpatient Treatment, Hx Community Mental Health Tx, Hx Schizophrenia, Hx of Violent Episodes Against Others, Other Psychiatric Issues/Disorders - PSYCHOTIC D/O Denies: Hx Attention Deficit Hyperactivity Disorder, Hx Eating Disorder, Hx Post Traumatic Stress Disorder, Hx Bipolar Disorder, Hx Suicide Attempt, Hx Substance Abuse - Surgical History Surgical History: Yes Surgery Procedure, Year, and Place: R INGUINAL HERNIA REPAIR 2011. FATTY LIPOMA REMOVAL R FOREHEAD Hx Anesthesia Reactions: No Infectious Disease History: No Infectious Disease History: Denies: Hx Clostridium Difficile, Hx Hepatitis, Hx Human Immunodeficiency Virus (HIV), Hx Shingles, Hx Tuberculosis, Traveled Outside the [place] in Last 30 Days - Family History Known Family History: Positive: Diabetes, Other - father with hx of depression and anxiety, paternal family hx of etoh - Social History Alcohol Use: None Hx Substance Use: No Substance Use Type: Reports: None Substance Use Comment - Amount & Last Used: pt denies with mother in room Hx Tobacco Use: Yes - former Smoking Status (MU): Former Smoker Type: Cigarettes Amount Used/How Often: 1/2PPD Length of Time of Smoking/Using Tobacco: 5YRS Have You Smoked in the Last Year: Yes Review of Systems Positive: Fever - subjective, Other - lethargy Positive: Abdominal Pain, Diarrhea, Other - decreased appetite Positive: Headache, Weakness - generalized All Other Systems Reviewed And Are Negative: Yes Physical Exam - Summary Physical Exam Summary: Appearance: Well-appearing, Non-toxic male, Well-nourished, lying in bed comfortably Skin: Warm, dry, no obvious rash Eyes: sclera anicteric, no conjunctival pallor ENT: mucous membranes moist, pharynx appears normal Neck: Supple, nontender Respiratory: Clear to auscultation, no signs of respiratory distress Cardiovascular: Normal S1, S2. No murmurs. Normal distal pulses in tibial and radial bilaterally. Abdomen: Soft, nontender, normal active bowel sounds present Musculoskeletal: Normal, Strength/ROM Intact Neurological: A&Ox3, awake and alert, mentation is normal, speech is fluent and appropriate Psychiatric: affect is normal, does not appear anxious or depressed Triage Information Reviewed: Yes Vital Signs On Initial Exam: Initial Vitals Temp Pulse Resp BP Pulse Ox 99.2 F 114 15 144/97 98 11/27/19 18:45 11/27/19 18:45 11/27/19 18:45 11/27/19 18:45 11/27/19 18:45 Vital Signs Reviewed: Yes Procedures - Sedation Patient Received Moderate/Deep Sedation with Procedure: No Diagnostics - Vital Signs Vital Signs Temp Pulse Resp BP Pulse Ox 11/27/19 18:45 99.2 F 114 15 144/97 98 - Laboratory Lab Results: Lab Results 11/27/19 Range/Units 19:56 WBC 8.6 (3.5-10.8) 10^3/uL RBC 4.82 (4.18-5.48) 10^6 /uL Hgb 15.7 (14.0-18.0) g/dL Hct 45 (42-52) % MCV 93 (80-94) fL MCH 33 H (27-31) pg MCHC 35 (31-36) g/dL RDW 13 (10-15) % Plt Count 323 (150-450) 10^3/uL MPV 8.0 (7.4-10.4) fL Neut % (Auto) 64.9 % Lymph % (Auto) 26.0 % [place] % (Auto) 8.7 % Eos % (Auto) 0.1 % Baso % (Auto) 0.3 % Absolute Neuts (auto) 5.6 (1.5-7.7) 10^3/ul Absolute Lymphs (auto) 2.2 (1.0-4.8) 10^3/ul Absolute Monos (auto) 0.7 (0-0.8) 10^3/ul Absolute Eos (auto) 0.0 (0-0.6) 10^3/ul Absolute Basos (auto) 0.0 (0-0.2) 10^3/ul Absolute Nucleated RBC 0.0 10^3/ul Nucleated RBC % 0.2 Result Diagrams: 11/27/19 19:56 11/27/19 19:56 Lab Statement: Any lab studies that have been ordered have been reviewed, and results considered in the medical decision making process. Re-Evaluation - Re-Evaluation First Eval Re-Evaluation Time: 21:50 Comment: We discussed results and plan for discharge. Complex Multi-Symp Course/Dx Course Of Treatment: 34 y/o male presenting with generalized weakness and pain causing difficulty ambulating, subjective fever, diffuse abdominal pain, diarrhea, and decreased appetite for the last few weeks with worsening over the last few days. Mother notes change in activity and oral intake. Physical exam is negative for any significant findings. Blood work obtained to reveal glucose of 127 and AST of 9 but is otherwise normal. Toxicology results are negative. Influenza A and B are negative. Patient administered Ibuprofen in the ED. - Diagnoses Provider Diagnoses: Malaise, Weakness, Schizoaffective disorder Discharge ED - Sign-Out/Discharge Documenting (check all that apply): Patient Departure - Patient will be discharged home. - Discharge Plan Condition: Good Disposition: HOME Patient Education Materials: Weakness (ED) Referrals: Trell Mclaughlin, [employer] [Primary Care Provider] - Additional Instructions: I am not sure what is causing your weakness, but the blood work we did tonight did not show any significant abnormalities. I recommend that you make an appointment with your PCP for further evaluation. - Billing Disposition and Condition Condition: GOOD Disposition: Home - Attestation Statements Document Initiated by Stephanie: Yes Documenting Scribe: Norma Cristina Provider For Whom Stephanie is Documenting (Include Credential): Dr. Toby Sam MD Scribe Attestation: I, Norma Cristina scribed for Dr. Toby Sam MD on 11/28/19 at 0134. Scribe Documentation Reviewed: Yes Provider Attestation: The documentation as recorded by the Norma hector accurately reflects the service I personally performed and the decisions made by me, Dr. Toby Sam MD Status of Scribpraneeth Document: Viewed
[2019-11-27 20:43] LABS: Acetaminophen < 15 mcg/mL; Alcohol < 10 mg/dL (<10); Salicylate < 2.50 mg/dL (<30)
[2019-11-27] MEDS ORDERED: Ibuprofen TAB* 400 MG PO ONE (21:01)
[2019-11-27 21:10] LABS: Anion Gap 10 mmol/L (2-11); Potassium 4.2 mmol/L (3.5-5.0)
[2019-11-27 21:11] LABS: AST 9 U/L (13-39)
[2019-11-27 21:33] LABS: Influenza A Molecular NEGATIVE (Negative); Influenza B Molecular NEGATIVE (Negative)
[2019-11-27 21:59] VITALS: BP 131/79
== END 2019-11-27 21:57 | disposition home or self-care (01) ==
LOC: ED 18:43
DX: R53.81 Other malaise (principal); R53.1 Weakness; F25.9 Schizoaffective disorder, unspecified; R10.84 Generalized abdominal pain; R19.7 Diarrhea, unspecified; R51 Headache; Z88.8 Allergy status to other drugs, medicaments and biological substances; Z87.891 Personal history of nicotine dependence
CPT/HCPCS: 36415; 80053; 80320; 80329; 84443; 85025; 99283; A9270-GY; G0480

== ENCOUNTER 2021-11-23 18:07 | Inpatient (IN) ==
[2021-11-23 19:04] LABS: ABS Eosinophils 0.1 10^3/ul (0-0.6); ABS Lymphocytes 2.9 10^3/ul (1.0-4.8); ABS Monocytes 0.5 10^3/ul (0-0.8); ABS Neutrophils 4.6 10^3/ul (1.5-7.7); Eosinophil % 1.4 %; Hematocrit 45 % (42-52); Hemoglobin 15.7 g/dL (14.0-18.0); Lymphocyte % 35.2 %; Mean Corpuscular HGB Conc 35 g/dL (31-36); Mean Corpuscular Hemoglobin 31 pg (27-31); Mean Corpuscular Volume 90 fL (80-94); Nucleated Red Blood Cells % 0.1; Platelet Count 323 10^3/uL (150-450); Red Blood Count 5.03 10^6 /uL (4.18-5.48); Red Cell Distribution Width 13 % (10-15); White Blood Count 8.1 10^3/uL (3.5-10.8)
[2021-11-23 19:23] LABS: ALT 16 U/L (7-52); AST 11 U/L (13-39); Albumin 4.6 g/dL (3.2-5.2); Alkaline Phosphatase 86 U/L (35-149); Anion Gap 8 mmol/L (2-11); Blood Urea Nitrogen 4 mg/dL (6-24); CO2 Carbon Dioxide 28 mmol/L (22-32); Calcium 9.2 mg/dL (8.6-10.3); Chloride 101 mmol/L (101-111); Globulin 2.3 g/dL (2-4); Glucose 109 mg/dL (70-100); Potassium 3.1 mmol/L (3.5-5.0); Sodium 137 mmol/L (135-145); Total Protein 6.9 g/dL (6.4-8.9); eGFR CKD-EPI 118.7 (>60)
[2021-11-23 19:25] LABS: Urine Appearance Clear; Urine Bilirubin Negative (Negative); Urine Blood Negative (Negative); Urine Color Colorless; Urine Glucose Negative (Negative); Urine Ketones Negative (Negative); Urine Nitrite Negative (Negative); Urine Protein Negative (Negative); Urine Urobilinogen Negative (Negative)
[2021-11-23 19:39] LABS: Urine Benzodiazepine Screen None Detected (None Detect); Urine Cannabinoids Screen None Detected (None Detect); Urine Opiates Screen None Detected (None Detect)
[2021-11-23 19:46] LABS: Acetaminophen < 15 mcg/mL; Alcohol, S < 13 mg/dL (<13); Salicylate < 2.50 mg/dL (<30)
[2021-11-23 20:02] LABS: TSH Ultra Thyroid Stim Horm 1.85 mcIU/mL (0.34-5.60)
[2021-11-23] MEDS ORDERED: Al Hydrox/Mg Hydrox/Simet LIQ 30 ML UDC PO PRN (20:34)
[2021-11-24 07:41] LABS: HDL Cholesterol 42.5 mg/dL
[2021-11-24] MEDS: Vitamin THERAPEUTIC TAB PO SCH (08:55)
[2021-11-25] MEDS: Vitamin THERAPEUTIC TAB PO SCH (08:26)
[2021-11-25 14:30] LABS: Calcium 9.7 mg/dL (8.6-10.3); Potassium 3.7 mmol/L (3.5-5.0); eGFR CKD-EPI 119.1 (>60)
[2021-11-26] MEDS: Cholecalciferol (VIT D3) 1,000 unit TAB PO SCH (08:36)
[2021-11-27] MEDS: Cholecalciferol (VIT D3) 1,000 unit TAB PO SCH (08:06)
[2021-11-28 08:27] VITALS: BP 121/70
[2021-11-28] MEDS: Cholecalciferol (VIT D3) 1,000 unit TAB PO SCH (08:55)
== END 2021-11-28 11:00 | disposition home or self-care (01) | DRG 885 ==
LOC: ED 18:07 → BSU 20:34
PROVIDERS: ADMIT Student in an Organized Health Care Education/Training Program; ATTEND Student in an Organized Health Care Education/Training Program

== ENCOUNTER 2022-01-14 16:25 | Inpatient (IN) ==
[2022-01-14 18:04] LABS: ABS Lymphocytes 1.9 10^3/ul (1.0-4.8); ABS Monocytes 0.5 10^3/ul (0-0.8); ABS Neutrophils 6.5 10^3/ul (1.5-7.7); Eosinophil % 0.2 %; Hematocrit 46 % (42-52); Hemoglobin 16.1 g/dL (14.0-18.0); Lymphocyte % 21.2 %; Mean Corpuscular HGB Conc 35 g/dL (31-36); Mean Corpuscular Hemoglobin 32 pg (27-31); Mean Corpuscular Volume 91 fL (80-94); Mean Platelet Volume 8.7 fL (7.4-10.4); Nucleated Red Blood Cells % 0.1; Platelet Count 303 10^3/uL (150-450); Red Blood Count 5.08 10^6 /uL (4.18-5.48); Red Cell Distribution Width 13 % (10-15); White Blood Count 8.9 10^3/uL (3.5-10.8)
[2022-01-14 18:45] LABS: Urine Appearance Clear; Urine Bilirubin Negative (Negative); Urine Blood Negative (Negative); Urine Color Straw; Urine Glucose Negative (Negative); Urine Ketones 1+ (Negative); Urine Nitrite Negative (Negative); Urine Protein Negative (Negative); Urine Specific Gravity 1.002 (1.002-1.030); Urine Urobilinogen Negative (Negative)
[2022-01-14 18:59] LABS: Urine Benzodiazepine Screen None Detected (None Detect); Urine Cannabinoids Screen None Detected (None Detect); Urine Opiates Screen None Detected (None Detect)
[2022-01-14 19:03] LABS: ALT 16 U/L (7-52); AST 10 U/L (13-39); Acetaminophen < 15 mcg/mL; Albumin 4.9 g/dL (3.2-5.2); Albumin/Globulin Ratio 2.6 (1-3); Alcohol, S < 13 mg/dL (<13); Alkaline Phosphatase 75 U/L (35-149); Anion Gap 10 mmol/L (2-11); Blood Urea Nitrogen 6 mg/dL (6-24); CO2 Carbon Dioxide 25 mmol/L (22-32); Calcium 10.2 mg/dL (8.6-10.3); Chloride 104 mmol/L (101-111); Globulin 1.9 g/dL (2-4); Glucose 82 mg/dL (70-100); Potassium 3.8 mmol/L (3.5-5.0); Salicylate < 2.50 mg/dL (<30); Sodium 139 mmol/L (135-145); Total Protein 6.8 g/dL (6.4-8.9); eGFR CKD-EPI 115.3 (>60)
[2022-01-14 19:17] LABS: TSH Ultra Thyroid Stim Horm 1.81 mcIU/mL (0.34-5.60)
[2022-01-14] MEDS ORDERED: Calcium Carb (TUMS) 500 mg CHEW TAB PO ONE (23:22)
[2022-01-15] MEDS ORDERED: Al Hydrox/Mg Hydrox/Simet LIQ 30 ML UDC PO PRN (08:45)
[2022-01-15] MEDS: Fluticasone NASAL SPRAY 50MCG 16 gm SPRAY BTL INTRANASAL SCH (13:08)
[2022-01-16 08:04] LABS: HDL Cholesterol 34.9 mg/dL
[2022-01-16] MEDS: Fluticasone NASAL SPRAY 50MCG 16 gm SPRAY BTL INTRANASAL SCH (10:40)
[2022-01-16] MEDS ORDERED: risperiDONE CONSTA 50 MG IM ONE (11:00)
[2022-01-17] MEDS: Fluticasone NASAL SPRAY 50MCG 16 gm SPRAY BTL INTRANASAL SCH (09:22)
[2022-01-18] MEDS: Fluticasone NASAL SPRAY 50MCG 16 gm SPRAY BTL INTRANASAL SCH (09:40)
[2022-01-19] MEDS: Fluticasone NASAL SPRAY 50MCG 16 gm SPRAY BTL INTRANASAL SCH (09:20)
[2022-01-20 08:25] VITALS: BP 127/80
[2022-01-20] MEDS: Fluticasone NASAL SPRAY 50MCG 16 gm SPRAY BTL INTRANASAL SCH (08:53)
[2022-01-20 13:03] LABS: ABS Lymphocytes 2.2 10^3/ul (1.0-4.8); ABS Monocytes 0.6 10^3/ul (0-0.8); ABS Neutrophils 4.6 10^3/ul (1.5-7.7); Eosinophil % 0.7 %; Hematocrit 49 % (42-52); Lymphocyte % 29.1 %; Mean Corpuscular HGB Conc 35 g/dL (31-36); Mean Corpuscular Hemoglobin 31 pg (27-31); Mean Corpuscular Volume 91 fL (80-94); Mean Platelet Volume 8.3 fL (7.4-10.4); Nucleated Red Blood Cells % 0.1; Platelet Count 319 10^3/uL (150-450); Red Blood Count 5.43 10^6 /uL (4.18-5.48); Red Cell Distribution Width 13 % (10-15); White Blood Count 7.4 10^3/uL (3.5-10.8)
== END 2022-01-20 15:03 | disposition home or self-care (01) | DRG 885 ==
LOC: ED 16:25 → EDHOLD 01-15 10:53 → BSU 01-15 12:17
PROVIDERS: ADMIT Psychiatry & Neurology Psychiatry; ATTEND Psychiatry & Neurology Psychiatry

== ENCOUNTER 2023-01-14 17:57 | Inpatient (IN) ==
[2023-01-14] MEDS ORDERED: Al Hydrox/Mg Hydrox/Simet LIQ 30 ML UDC PO ONE (18:35)
[2023-01-14 19:38] LABS: ABS Eosinophils 0.1 10^3/ul (0-0.6); ABS Lymphocytes 2.9 10^3/ul (1.0-4.8); ABS Monocytes 0.5 10^3/ul (0-0.8); Eosinophil % 1.5 %; Hematocrit 46 % (42-52); Hemoglobin 15.6 g/dL (14.0-18.0); Lymphocyte % 33.9 %; Mean Corpuscular HGB Conc 34 g/dL (31-36); Mean Corpuscular Hemoglobin 32 pg (27-31); Mean Corpuscular Volume 94 fL (80-94); Mean Platelet Volume 8.2 fL (7.4-10.4); Nucleated Red Blood Cells % 0.1; Platelet Count 306 10^3/uL (150-450); Red Blood Count 4.93 10^6 /uL (4.18-5.48); Red Cell Distribution Width 13 % (10-15); White Blood Count 8.4 10^3/uL (3.5-10.8)
[2023-01-14 19:42] LABS: Urine Appearance Clear; Urine Bilirubin Negative (Negative); Urine Blood Negative (Negative); Urine Color Colorless; Urine Glucose Negative (Negative); Urine Ketones Trace (Negative); Urine Nitrite Negative (Negative); Urine Protein Negative (Negative); Urine Specific Gravity 1.002 (1.002-1.030); Urine Urobilinogen Negative (Negative)
[2023-01-14 20:05] LABS: Urine Benzodiazepine Screen None Detected (None Detect); Urine Cannabinoids Screen None Detected (None Detect); Urine Opiates Screen None Detected (None Detect)
[2023-01-14 20:30] LABS: TSH Ultra Thyroid Stim Horm 1.38 mcIU/mL (0.34-5.60)
[2023-01-14 20:36] LABS: ALT 16 U/L (7-52); AST 8 U/L (13-39); Acetaminophen < 15 mcg/mL; Albumin 4.6 g/dL (3.2-5.2); Alcohol, S < 13 mg/dL (<13); Alkaline Phosphatase 88 U/L (35-149); Anion Gap 4 mmol/L (2-11); Blood Urea Nitrogen 9 mg/dL (6-24); CO2 Carbon Dioxide 29 mmol/L (22-32); Calcium 9.7 mg/dL (8.6-10.3); Chloride 105 mmol/L (101-111); Creatinine, Serum 0.81 mg/dL (0.67-1.17); Globulin 2.3 g/dL (2-4); Glucose 88 mg/dL (70-100); Potassium 3.5 mmol/L (3.5-5.0); Salicylate < 2.50 mg/dL (<30); Sodium 138 mmol/L (135-145); Total Protein 6.9 g/dL (6.4-8.9); eGFR CKD-EPI 117.9 (>60)
[2023-01-15] MEDS ORDERED: Al Hydrox/Mg Hydrox/Simet LIQ 30 ML UDC PO PRN (01:46)
[2023-01-15] MEDS ORDERED: Vitamin THERAPEUTIC TAB PO SCH (09:00)
[2023-01-15] MEDS: Polyethylene Glycol 3350 17 GM PACKET PO SCH (12:35)
[2023-01-16] MEDS: Polyethylene Glycol 3350 17 GM PACKET PO SCH ×2 (09:55→20:19)
[2023-01-17 08:32] LABS: HDL Cholesterol 49.7 mg/dL
[2023-01-17] MEDS: Polyethylene Glycol 3350 17 GM PACKET PO SCH ×2 (09:13→20:51)
[2023-01-18] MEDS: Polyethylene Glycol 3350 17 GM PACKET PO SCH ×2 (07:32→20:32)
[2023-01-19] MEDS: Polyethylene Glycol 3350 17 GM PACKET PO SCH ×2 (10:02→21:06)
[2023-01-20] MEDS: Polyethylene Glycol 3350 17 GM PACKET PO SCH ×2 (11:08→22:47)
[2023-01-20 14:19] LABS: Clozapine 193 ng/mL (350-600); Clozapine & Norclozapine Level 402 ng/mL; Norclozapine 209 ng/mL
[2023-01-21] MEDS: Polyethylene Glycol 3350 17 GM PACKET PO SCH ×2 (09:59→20:14)
[2023-01-22] MEDS: Polyethylene Glycol 3350 17 GM PACKET PO SCH (21:21)
[2023-01-23] MEDS: Polyethylene Glycol 3350 17 GM PACKET PO SCH (20:36)
[2023-01-24] MEDS: Polyethylene Glycol 3350 17 GM PACKET PO SCH (20:52)
[2023-01-25] MEDS: Polyethylene Glycol 3350 17 GM PACKET PO SCH (21:08)
[2023-01-26] MEDS: Polyethylene Glycol 3350 17 GM PACKET PO SCH (20:25)
[2023-01-27 09:34] LABS: ABS Eosinophils 0.4 10^3/ul (0-0.6); ABS Lymphocytes 2.9 10^3/ul (1.0-4.8); ABS Monocytes 0.5 10^3/ul (0-0.8); ABS Neutrophils 2.3 10^3/ul (1.5-7.7); Eosinophil % 5.9 %; Hematocrit 45 % (42-52); Hemoglobin 15.1 g/dL (14.0-18.0); Mean Corpuscular HGB Conc 34 g/dL (31-36); Mean Corpuscular Hemoglobin 31 pg (27-31); Mean Corpuscular Volume 93 fL (80-94); Mean Platelet Volume 8.4 fL (7.4-10.4); Nucleated Red Blood Cells % 0.2; Platelet Count 296 10^3/uL (150-450); Red Cell Distribution Width 13 % (10-15)
[2023-01-27] MEDS: Polyethylene Glycol 3350 17 GM PACKET PO SCH (21:33)
[2023-01-28 08:22] VITALS: BP 118/73
[2023-01-28] MEDS: Polyethylene Glycol 3350 17 GM PACKET PO SCH (13:55)
== END 2023-01-28 14:05 | disposition home or self-care (01) | DRG 885 ==
LOC: ED 17:57 → EDHOLD 01-15 00:10 → BSU 01-15 01:35
PROVIDERS: ADMIT Psychiatry & Neurology Psychiatry; ATTEND Psychiatry & Neurology Psychiatry